=== PATIENT | female | born 1995 | race Caucasian/White ===

== ENCOUNTER 2021-11-08 17:35 | Emergency (ER) | payer OTHER ==
--- NOTE | 2021-11-08 17:38 | ERPHSYRPT ---
- History of Present Illness Time Seen by Provider: 11/08/21 17:37 Source: patient, family Exam Limitations: no limitations Physician History: This is a 26-year-old white female on Suboxone who presents with pain in the plantar surface of her left first digit for over a year. She denies any acute injury. She did not step on glass. In the last several days her pain has worsened. But seems to worsen the pain is standing. She has never seen anybody for this. Method of Injury: unknown (No known or recollection of any injury) Occurred: other (Present for over a year) Severity of Pain-Max: mild Severity of Pain-Current: mild Lower Extremities Pain: 1st toe: left Modifying Factors: Improves With: movement Associated Symptoms: other (Can bear weight but hurts to do so after long period of time) Allergies/Adverse Reactions: Penicillins Allergy (Verified 11/08/21 17:45) Home Medications: Buprenorphine HCl/Naloxone HCl [Buprenorphine-Nalox 8-2 mg Tab] 1 ea DAILY 11/08/21 [History] Travel Risk - International Travel Have you traveled outside of the country in past 3 weeks: No - Coronavirus Screening Are you exhibiting any of the following symptoms?: No Close contact with a COVID-19 positive Pt in past 14-21 Days: No - Review of Systems Constitutional: No Symptoms Eyes: No Symptoms Ears, Nose, & Throat: No Symptoms Respiratory: No Symptoms Cardiac: No Symptoms Abdominal/Gastrointestinal: No Symptoms Genitourinary Symptoms: No Symptoms Musculoskeletal: Joint Pain (Left first toe pain plantar aspect) Skin: No Symptoms Neurological: No Symptoms Psychological: No Symptoms Endocrine: No Symptoms Hematologic/Lymphatic: No Symptoms Immunological/Allergic: No Symptoms All Other Systems: Reviewed and Negative - Past Medical History Pertinent Past Medical History: No - Past Surgical History Past Surgical History: No - Nursing Vital Signs Nursing Vital Signs: Initial Vital Signs Temperature 97.5 F 11/08/21 17:40 Pulse Rate 60 11/08/21 17:40 Respiratory Rate 16 11/08/21 17:40 Blood Pressure 145/88 11/08/21 17:40 O2 Sat by Pulse Oximetry 99 11/08/21 17:40 Pain Scale Pain Intensity 0 - Physical Exam General Appearance: no apparent distress, alert Eyes, Ears, Nose, Throat Exam: normal ENT inspection, moist mucous membranes Neck Exam: normal inspection, non-tender, supple, full range of motion Cardiovascular/Respiratory Exam: chest non-tender, no respiratory distress Gastrointestinal/Abdominal Exam: non-tender Back Exam: normal inspection, normal range of motion, No CVA tenderness, No vertebral tenderness Legs Exam: bilateral leg: non-tender, normal inspection, normal range of motion, no evidence of injury Knees Exam: bilateral knee: non-tender, normal inspection, normal range of motion, no evidence of injury Ankle Exam: bilateral ankle: non-tender, normal inspection, normal range of motion, no evidence of injury Foot Exam: right foot: non-tender, left foot: soft tissue tenderness (First toe, primarily plantar aspect), bilateral foot: normal inspection, normal range of motion, no evidence of injury Neuro/Tendon Exam: normal sensation, normal motor functions, normal tendon functions, responds to pain, no evidence tendon injury Mental Status Exam: alert, oriented x 3, cooperative Skin Exam: normal color, warm, dry O2 Delivery: Room Air - Course Nursing assessment & vital signs reviewed: Yes - Progress Progress: unchanged Progress Note: 11/08/21 18:15 Medical decision making: This patient has chronic, intermittent pain in the plantar aspect of her left first toe. Patient denies any injury at any time in the past. I did offer her an x-ray. However I do not necessarily think she has any type of fracture or dislocation and I do not suspect a foreign body present. She has opted not to have the x-ray performed. There is no evidence of infection and she has excellent pedal pulses. - Departure Departure Disposition: Home Clinical Impression: Toe pain, left Condition: Stable Critical Care Time: No Additional Instructions: May soak your left foot in an alternating bath of ice and warm bath. May add Tylenol for pain control. If your symptoms persist beyond 72 hours, follow-up with Dr. Liao, the [facility] cogeneration technician. Call to make an appointment. Another option is to follow-up in the [facility] orthopedic clinic which is a walk-in clinic. No appointment is necessary. It is open 8 AM to 10 AM Monday through Monday. Prescriptions: Prednisone 5 mg [Deltasone 5 mg] 5 mg PO TID #12 tablet Orphenadrine Citrate 100 mg [Norflex 100 MG Tablet] 100 mg PO BID #10 tab
[2021-11-08 18:27] VITALS: BP 139/68; PULSE 61
[2021-11-08 18:37] VITALS: O2SAT 97
== END 2021-11-08 18:37 | disposition home or self-care (01) ==
LOC: ED 17:35
DX: M79.675 Pain in left toe(s) (principal); Z79.891 Long term (current) use of opiate analgesic; Z79.52 Long term (current) use of systemic steroids
CPT/HCPCS: 99283